=== PATIENT | male | born 1945 | race Caucasian/White ===

== ENCOUNTER 2018-10-10 09:41 | Outpatient (CLI) | payer MEDICARE ==
--- NOTE | 2018-10-11 08:30 | XRAY Report ---
Reason: HEMOPTYSIS Procedure Date: 10/10/2018 Accession Number: [id number] / [id number] Procedure: XRS - Chest 2 View X-Ray CPT Code: 73620 FULL RESULT: EXAM: CHEST RADIOGRAPHY TO VIEW HIS EXAM DATE: 10/10/2018. CLINICAL HISTORY: Hemoptysis. COMPARISON: PA and lateral chest on 08/30/2005. TECHNIQUE: PA and lateral views. FINDINGS: Lungs/Pleura: Normal vasculature. Minimal left lower lung scarring is unchanged. Vertical linear density in the medial right lower chest. The lungs are otherwise clear. No pleural fluid or pneumothorax. Mediastinum: Normal cardiac and mediastinal contours. Atherosclerosis of the aortic arch. Bones: Degenerative changes of the spine. IMPRESSION: Vertical linear focus of diskoid atelectasis or scar of the medial right lower lung, not present on 08/30/2005. Otherwise, no acute abnormality or significant change from the prior examination. [facility]
== END 2018-10-10 09:42 | disposition home or self-care (01) ==
LOC: DI.S 09:41
PROVIDERS: ATTEND Family Medicine
DX: R04.2 Hemoptysis (principal)
CPT/HCPCS: 71046

== ENCOUNTER 2019-05-17 13:54 | Outpatient (CLI) | payer MEDICARE ==
--- NOTE | 2019-05-17 15:12 | XRAY Report ---
Reason: LOW BACK PAIN,PAIN IN RT HIP Procedure Date: 05/17/2019 Accession Number: [id number] / [id number] Procedure: XR - Hip w/Pelvis 2-3V RT CPT Code: Final Report FULL RESULT: EXAM: RIGHT HIP RADIOGRAPHY EXAM DATE: 05/17/2019 02:24 PM. CLINICAL HISTORY: Low back pain, pain in right hip. COMPARISON: LUMBAR SPINE 2 VIEW 05/17/2019 2:08 PM. TECHNIQUE: 2 views. FINDINGS: Bones: Normal. No fractures or bone lesion. Joints: There is bilateral subarticular sclerosis affecting both acetabula and femoral heads consistent with osteoarthritis. The sacroiliac joints appear fused. There is transitional anatomy with fusion between the left transverse process of L5 and the left sacral ala. Soft Tissues: Normal. No soft tissue swelling. IMPRESSION: Mild bilateral hip osteoarthritis. Transitional anatomy at the lumbosacral junction. The sacroiliac joints are fused. [facility]
--- NOTE | 2019-05-17 15:13 | XRAY Report ---
Reason: LOW BACK PAIN,PAIN IN RT HI Procedure Date: 05/17/2019 Accession Number: [id number] / [id number] Procedure: XR - Lumbar Spine 2 View CPT Code: Final Report FULL RESULT: EXAM: LUMBOSACRAL SPINE RADIOGRAPHY EXAM DATE: 05/17/2019 02:24 PM. CLINICAL HISTORY: Low back pain and pain in the right hip. COMPARISONS: None. TECHNIQUE: 2 views. FINDINGS: Alignment: Normal. No spondylolisthesis or scoliosis. Bones: There is partial lumbarization of the S1 vertebra. No fractures or bone lesions. Disks: Endplate osteophytes are visible from T12-L1 to L5-S1. Facets: There is mild facet joint osteoarthritis from L3-L4 to L5-S1. Sacroiliac Joints: Unremarkable. Soft Tissues: There is mural calcification of the aorta and iliac arteries consistent with atherosclerosis. IMPRESSION: Moderate degenerative change of the lumbar spine. No visible fracture. [facility]
== END 2019-05-17 13:55 | disposition home or self-care (01) ==
LOC: DI 13:54
PROVIDERS: ATTEND Nurse Practitioner Family
DX: M47.816 Spondylosis without myelopathy or radiculopathy, lumbar region (principal); M47.817 Spondylosis without myelopathy or radiculopathy, lumbosacral region; M16.11 Unilateral primary osteoarthritis, right hip
CPT/HCPCS: 72100

== ENCOUNTER 2019-11-16 08:51 | Outpatient (CLI) | payer MEDICARE ==
[2019-11-16 16:02] LABS: ALBUMIN 3.8 g/dL (3.2-5.5); ALBUMIN/GLOBULIN RATIO 1.5 (1.0-2.2); ALKALINE PHOSPHATASE 52 IU/L (42-121); ALT ALANINE AMINOTRANSFERASE 18 IU/L (10-60); AST ASPARTATE AMINOTRANSFERASE 17 IU/L (10-42); BILIRUBIN,TOTAL 1.5 mg/dL (0.2-1.0); BUN - BLOOD UREA NITROGEN 15 mg/dL (6-20); CALCIUM 8.7 mg/dL (8.5-10.3); CARBON DIOXIDE - CO2 27 mmol/L (21-32); CHLORIDE 104 mmol/L (101-111); CHOL/HDL RATIO 3.3 (<5.0); CHOLESTEROL 170 mg/dL; CREATININE 0.8 mg/dL (0.6-1.2); GLUCOSE 105 mg/dL (70-100); HDL CHOLESTEROL 52 mg/dL; SODIUM 137 mmol/L (135-145); TOTAL PROTEIN 6.4 g/dL (6.7-8.2)
[2019-11-16 16:10] LABS: PSA TOTAL 1.335 ng/mL (0.000-2.000)
[2019-11-16 19:56] LABS: HEMOGLOBIN A1c% 5.6 % (4.27-6.07)
[2019-11-17 12:30] LABS: HEPATITIS C ANTIBODY NON-REACTIVE (NON-REACTIVE)
== END 2019-11-16 08:52 | disposition home or self-care (01) ==
LOC: LAB.S 08:51
PROVIDERS: ATTEND Family Medicine
DX: R73.9 Hyperglycemia, unspecified (principal); Z12.5 Encounter for screening for malignant neoplasm of prostate; Z11.59 Encounter for screening for other viral diseases
CPT/HCPCS: 36415; 80053; 80061; 83036; 83721; 84153; 86803

== ENCOUNTER 2020-09-29 14:34 | Outpatient (CLI) | payer MEDICARE ==
--- NOTE | 2020-09-29 16:14 | XRAY Report ---
PROCEDURE: Finger(s) LT INDICATIONS: CONTUSION OF LEFT RING FINGER TECHNIQUE: AP hand, 2 views of the left fourth finger(s) acquired. COMPARISON: None FINDINGS: Bones: There is a mildly displaced dorsal plate fracture involving the distal phalanx of the fourth d igit, with articular surface extension to the distal interphalangeal joint. No suspicious bony lesion s. Soft tissues: No suspicious soft tissue calcifications. IMPRESSION: Dorsal plate fracture of the fourth digit as above. Reviewed by: Lynne Amador MD on 09/29/2020 4:13 PM PDT Approved by: Lynne Amador MD on 09/29/2020 4:13 PM PDT Station ID: [id number]
== END 2020-09-29 23:59 | disposition home or self-care (01) ==
LOC: DI.S 14:34
PROVIDERS: ATTEND Emergency Medicine
DX: S62.635A Displaced fracture of distal phalanx of left ring finger, initial encounter for closed fracture (principal)

== ENCOUNTER 2021-02-28 08:00 | Outpatient (CLI) | payer MEDICARE | END 2021-02-28 23:59 | LOC: LAB 08:00 | PROVIDERS: ATTEND Emergency Medicine | DX: J34.89 Other specified disorders of nose and nasal sinuses (principal); R05.1 Acute cough; R11.2 Nausea with vomiting, unspecified; Z20.822 Contact with and (suspected) exposure to COVID-19 ==

== ENCOUNTER 2022-03-22 12:34 | Outpatient (CLI) | payer MEDICARE ==
--- NOTE | 2022-03-22 15:22 | Ultrasound Report ---
PROCEDURE: Abdomen Limited INDICATIONS: UMBILLICAL HERNIA TECHNIQUE: Real-time focused scanning was performed of the abdomen, with image documentation. COMPARISON: Not available. FINDINGS: Ultrasound was performed in the area of interest. There is a moderate sized, fat-containin g umbilical hernia. The hernia neck measures 2.1 cm. The hernia is partially reducible with manual co mpression. IMPRESSION: A moderate sized, partially reducible fat-containing umbilical hernia. Reviewed by: Stephy Caceres MD on 03/22/2022 3:21 PM PST Approved by: Stephy Caceres MD on 03/22/2022 3:21 PM PST Station ID: [id number]
== END 2022-03-22 12:35 | disposition home or self-care (01) ==
LOC: DI 12:34
PROVIDERS: ATTEND Nurse Practitioner Family
DX: K42.9 Umbilical hernia without obstruction or gangrene (principal)

== ENCOUNTER 2022-05-26 07:00 | Outpatient (CLI) | payer MEDICARE ==
--- NOTE | 2022-05-26 13:47 | XRAY Report ---
PROCEDURE: Chest 2 View X-Ray INDICATIONS: CHRONIC COUGH TECHNIQUE: 2 views of the chest were acquired. COMPARISON: None. FINDINGS: Surgical changes and devices: None. Lungs and pleura: No pleural effusions or pneumothorax. Lungs are clear. Mediastinum: Mediastinal contours appear normal. Heart size is normal. Bones and chest wall: No suspicious bony lesions. Overlying soft tissues appear unremarkable. IMPRESSION: No acute cardiopulmonary process. Reviewed by: Sedrick Bee on 05/26/2022 1:46 PM PDT Approved by: Sedrick Bee on 05/26/2022 1:46 PM PDT Station ID: [id number]
== END 2022-05-26 23:59 | disposition home or self-care (01) ==
LOC: DI.S 07:00
PROVIDERS: ATTEND Physician Assistant Medical
DX: R05.3 Chronic cough (principal)

== ENCOUNTER 2022-11-04 08:31 | Outpatient (CLI) | payer MEDICARE ==
--- NOTE | 2022-11-04 13:00 | XRAY Report ---
PROCEDURE: SI Joints INDICATIONS: BILATERAL SACROILIAC JOINT PAIN TECHNIQUE: 3 views of the sacroiliac joints were acquired. COMPARISON: Right hip radiographs 05/17/2019. FINDINGS: Bones: There is ankylosis of the sacroiliac joints bilaterally. Degenerative changes are seen in the included lumbar spine. Left iliolumbar ligament ossification is also noted. No suspicious bony lesion s. No acute fractures. Mild degenerative changes in the hips bilaterally. Soft tissues: Overlying bowel gas pattern is normal. No suspicious soft tissue densities. Aortic a therosclerotic calcifications are present. IMPRESSION: Ankylosis of the sacroiliac joints bilaterally. Reviewed by: Chad Carias MD on 11/04/2022 12:59 PM PDT Approved by: Chad Carias MD on 11/04/2022 12:59 PM PDT Station ID: [id number]
[2022-11-04 14:32] LABS: BASOPHILS # (AUTO) 0.1 10^3/uL (0.0-0.1); BASOPHILS % (AUTO) 1.3 %; EOSINOPHILS # (AUTO) 0.2 10^3/uL (0.0-0.7); EOSINOPHILS % (AUTO) 3.3 %; HCT - HEMATOCRIT 45.7 % (42.0-52.0); HGB - HEMOGLOBIN 15.3 g/dL (14.0-18.0); LYMPHOCYTES # (AUTO) 0.9 10^3/uL (1.5-3.5); LYMPHOCYTES % (AUTO) 20.1 %; MEAN CORPUSCULAR HEMOGLOBIN 32.8 pg (27.0-31.0); MEAN CORPUSCULAR HGB CONC 33.5 g/dL (32.0-36.0); MEAN CORPUSCULAR VOLUME 98.1 fL (80.0-94.0); MEAN PLATELET VOLUME 10.6 fL (7.4-11.4); MONOCYTES # (AUTO) 0.5 10^3/uL (0.0-1.0); NEUTROPHILS # (AUTO) 2.9 10^3/uL (1.5-6.6); NEUTROPHILS % (AUTO) 65.1 %; PLT - PLATELET COUNT 217 10^3/uL (130-450); RED BLOOD COUNT 4.66 10^6/uL (4.70-6.10); RED CELL DISTRIBUTION WIDTH 13.1 % (12.0-15.0); WHITE BLOOD COUNT 4.5 x10^3/uL (4.8-10.8)
[2022-11-04 14:54] LABS: ALBUMIN 3.9 g/dL (3.2-5.5); ALBUMIN/GLOBULIN RATIO 1.8 (1.0-2.2); ALKALINE PHOSPHATASE 50 IU/L (42-121); ALT ALANINE AMINOTRANSFERASE 14 IU/L (10-60); AST ASPARTATE AMINOTRANSFERASE 18 IU/L (10-42); BILIRUBIN,TOTAL 1.1 mg/dL (0.2-1.0); BUN - BLOOD UREA NITROGEN 16 mg/dL (6-20); CALCIUM 8.9 mg/dL (8.5-10.3); CARBON DIOXIDE - CO2 30 mmol/L (21-32); CHLORIDE 106 mmol/L (101-111); CHOL/HDL RATIO 3.3 (<5.0); CHOLESTEROL 176 mg/dL; CREATININE 0.8 mg/dL (0.6-1.3); GFR - MDRD 93 (>89); GLUCOSE 115 mg/dL (74-104); HDL CHOLESTEROL 54 mg/dL; LDL CHOLESTEROL,CALCULATED 114 mg/dL; LDL/HDL RATIO 2.1 (<3.6); POTASSIUM 4.7 mmol/L (3.5-4.5); SODIUM 138 mmol/L (135-145); TOTAL PROTEIN 6.1 g/dL (6.4-8.9); TRIGLYCERIDES 41 mg/dL (48-352); VLDL CHOLESTEROL 8 mg/dL
[2022-11-04 15:09] LABS: THYROID STIMULATING HORMONE 1.21 uIU/mL (0.34-5.60)
[2022-11-04 20:38] LABS: ESTIMATED AVERAGE GLUCOSE 114 mg/dL (70-100); HEMOGLOBIN A1c% 5.6 % (4.27-6.07)
== END 2022-11-04 08:32 | disposition home or self-care (01) ==
LOC: DI.S 08:31
PROVIDERS: ATTEND Internal Medicine
DX: M43.28 Fusion of spine, sacral and sacrococcygeal region (principal); R53.83 Other fatigue; R42 Dizziness and giddiness
CPT/HCPCS: 36415; 80053; 80061; 83036; 83721; 84443; 85025

== ENCOUNTER 2022-11-30 07:59 | Outpatient (CLI) | payer MEDICARE ==
[2022-11-30 15:49] LABS: RHEUMATOID FACTOR NEGATIVE (Negative)
== END 2022-11-30 08:00 | disposition home or self-care (01) ==
LOC: LAB.S 07:59
PROVIDERS: ATTEND Internal Medicine
DX: M53.3 Sacrococcygeal disorders, not elsewhere classified (principal); R53.83 Other fatigue
CPT/HCPCS: 36415; 81374; 85651; 86140; 86430

== ENCOUNTER 2023-01-22 12:25 | Outpatient (CLI) | payer MEDICARE ==
--- NOTE | 2023-01-23 18:43 | XRAY Report ---
PROCEDURE: Chest 2 View X-Ray INDICATIONS: ACUTE COUGH/COVID+ TECHNIQUE: 2 views of the chest were acquired. COMPARISON: None. FINDINGS: Surgical changes and devices: None. Lungs and pleura: No pleural effusions or pneumothorax. Lungs are clear. Mediastinum: Mediastinal contours appear normal. Heart size is normal. Bones and chest wall: No suspicious bony lesions. Overlying soft tissues appear unremarkable. IMPRESSION: No acute cardiopulmonary process. Reviewed by: Michelle Cadet MD on 01/23/2023 6:42 PM [facility] Approved by: Michelle Cadet MD on 01/23/2023 6:42 PM [facility] Station ID: [id number]
== END 2023-01-22 23:59 | disposition home or self-care (01) ==
LOC: DI.S 12:25
PROVIDERS: ATTEND Registered Nurse
DX: U07.1 COVID-19 (principal); R05.1 Acute cough

== ENCOUNTER 2023-01-22 15:00 | Outpatient (CLI) | payer MEDICARE ==
[2023-01-22 15:17] LABS: BASOPHILS % (AUTO) 0.1 %; EOSINOPHILS % (AUTO) 0.1 %; HCT - HEMATOCRIT 52.1 % (42.0-52.0); HGB - HEMOGLOBIN 17.4 g/dL (14.0-18.0); LYMPHOCYTES % (AUTO) 9.3 %; MEAN CORPUSCULAR HEMOGLOBIN 31.9 pg (27.0-31.0); MEAN CORPUSCULAR HGB CONC 33.4 g/dL (32.0-36.0); MEAN CORPUSCULAR VOLUME 95.4 fL (80.0-94.0); MEAN PLATELET VOLUME 10.7 fL (7.4-11.4); MONOCYTES # (AUTO) 0.9 10^3/uL (0.0-1.0); MONOCYTES % (AUTO) 8.4 %; NEUTROPHILS # (AUTO) 8.5 10^3/uL (1.5-6.6); NEUTROPHILS % (AUTO) 81.8 %; PLT - PLATELET COUNT 207 10^3/uL (130-450); RED BLOOD COUNT 5.46 10^6/uL (4.70-6.10); RED CELL DISTRIBUTION WIDTH 12.4 % (12.0-15.0); WHITE BLOOD COUNT 10.4 x10^3/uL (4.8-10.8)
[2023-01-22 15:42] LABS: ALBUMIN 4.1 g/dL (3.2-5.5); ALBUMIN/GLOBULIN RATIO 1.4 (1.0-2.2); BILIRUBIN,TOTAL 1.2 mg/dL (0.2-1.0); CALCIUM 9.3 mg/dL (8.5-10.3); CREATININE 0.8 mg/dL (0.6-1.3); POTASSIUM 4.9 mmol/L (3.5-4.5)
== END 2023-01-22 15:01 | disposition home or self-care (01) ==
LOC: LAB 15:00
PROVIDERS: ATTEND Registered Nurse
DX: U07.1 COVID-19 (principal)
CPT/HCPCS: 36415; 80053; 85025

== ENCOUNTER 2023-01-24 11:21 | Outpatient (CLI) | payer MEDICARE ==
[2023-01-24 14:35] LABS: BASOPHILS % (AUTO) 0.4 %; EOSINOPHILS # (AUTO) 0.1 10^3/uL (0.0-0.7); EOSINOPHILS % (AUTO) 0.7 %; HCT - HEMATOCRIT 49.7 % (42.0-52.0); HGB - HEMOGLOBIN 16.4 g/dL (14.0-18.0); LYMPHOCYTES % (AUTO) 14.4 %; MEAN CORPUSCULAR HEMOGLOBIN 31.9 pg (27.0-31.0); MEAN CORPUSCULAR VOLUME 96.7 fL (80.0-94.0); MEAN PLATELET VOLUME 11.2 fL (7.4-11.4); MONOCYTES # (AUTO) 0.7 10^3/uL (0.0-1.0); MONOCYTES % (AUTO) 10.4 %; NEUTROPHILS % (AUTO) 73.8 %; PLT - PLATELET COUNT 251 10^3/uL (130-450); RED BLOOD COUNT 5.14 10^6/uL (4.70-6.10); RED CELL DISTRIBUTION WIDTH 12.1 % (12.0-15.0); WHITE BLOOD COUNT 6.8 x10^3/uL (4.8-10.8)
[2023-01-24 15:25] LABS: ALBUMIN 3.9 g/dL (3.2-5.5); ALBUMIN/GLOBULIN RATIO 1.4 (1.0-2.2); BILIRUBIN,TOTAL 1.6 mg/dL (0.2-1.0); CALCIUM 9.3 mg/dL (8.5-10.3); POTASSIUM 4.4 mmol/L (3.5-4.5); TOTAL PROTEIN 6.7 g/dL (6.4-8.9)
== END 2023-01-24 11:22 | disposition home or self-care (01) ==
LOC: LAB.S 11:21
PROVIDERS: ATTEND Registered Nurse
DX: U07.1 COVID-19 (principal)
CPT/HCPCS: 36415; 80053; 85025

== ENCOUNTER 2023-02-10 07:52 | Outpatient (CLI) | payer MEDICARE ==
[2023-02-10 14:43] LABS: BASOPHILS # (AUTO) 0.1 10^3/uL (0.0-0.1); EOSINOPHILS # (AUTO) 0.2 10^3/uL (0.0-0.7); EOSINOPHILS % (AUTO) 3.2 %; HCT - HEMATOCRIT 46.5 % (42.0-52.0); HGB - HEMOGLOBIN 15.2 g/dL (14.0-18.0); LYMPHOCYTES % (AUTO) 19.8 %; MEAN CORPUSCULAR HEMOGLOBIN 32.1 pg (27.0-31.0); MEAN CORPUSCULAR HGB CONC 32.7 g/dL (32.0-36.0); MEAN CORPUSCULAR VOLUME 98.3 fL (80.0-94.0); MEAN PLATELET VOLUME 10.5 fL (7.4-11.4); MONOCYTES # (AUTO) 0.6 10^3/uL (0.0-1.0); MONOCYTES % (AUTO) 11.3 %; NEUTROPHILS # (AUTO) 3.2 10^3/uL (1.5-6.6); NEUTROPHILS % (AUTO) 64.3 %; PLT - PLATELET COUNT 229 10^3/uL (130-450); RED BLOOD COUNT 4.73 10^6/uL (4.70-6.10)
[2023-02-10 15:31] LABS: ALBUMIN 3.7 g/dL (3.2-5.5); ALBUMIN/GLOBULIN RATIO 1.4 (1.0-2.2); BILIRUBIN,DIRECT 0.11 mg/dL (0.03-0.18); CALCIUM 8.7 mg/dL (8.5-10.3); CREATININE 0.8 mg/dL (0.6-1.3); POTASSIUM 4.5 mmol/L (3.5-4.5); TOTAL PROTEIN 6.4 g/dL (6.4-8.9)
== END 2023-02-10 07:53 | disposition home or self-care (01) ==
LOC: LAB.S 07:52
PROVIDERS: ATTEND Internal Medicine
DX: U07.1 COVID-19 (principal); R63.0 Anorexia; R11.0 Nausea; E80.6 Other disorders of bilirubin metabolism
CPT/HCPCS: 36415; 80053; 82248; 85025

== ENCOUNTER 2023-02-25 08:42 | Outpatient (CLI) | payer MEDICARE ==
--- NOTE | 2023-02-25 14:19 | MRI Report ---
PROCEDURE: PELVIS WO INDICATIONS: SACROILIITIS TECHNIQUE: Noncontrast coronal T1 spin echo, STIR, and T2 haste with and without fat saturation; axial T1 spin e cho, STIR, and T2 haste; sagittal T1 spin echo and T2 haste through the bony pelvis. Oblique coronal T1 spin echo and STIR through the sacrum. COMPARISON: Sacroiliac joint radiographs 11/04/2022 FINDINGS: Image quality: Excellent. Bones: There is severe joint space narrowing and partial ankylosis of the sacroiliac joints bilateral ly. No focal osseous edema is seen just distal to sacroiliitis. No suspicious marrow space occupying lesions. There are changes are seen in the included lumbar spine with degenerative endplate edema herman rounding the L4-5 disc space. There is partial sacralization of L5. Soft tissues: No presacral mass. Rectum appears normal in caliber and wall thickness. No pathologic f ree pelvic fluid. Multiple diverticula are seen in the included colon. Prostate is enlarged. The musc ulature surrounding the pelvis is normal in bulk. There is a fat-containing periumbilical hernia. 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 No signs of active sacroiliitis. 2.Degenerative changes in the included lumbar spine. 3.Incidental note is made of colonic diverticulosis, prostatomegaly, and a fat-containing periumbilic al hernia. Reviewed by: Chad Carias MD on 02/25/2023 2:17 PM PST Approved by: Chad Carias MD on 02/25/2023 2:17 PM PST Station ID: [id number]
== END 2023-02-25 08:43 | disposition home or self-care (01) ==
LOC: DI 08:42
PROVIDERS: ATTEND Internal Medicine
DX: M43.28 Fusion of spine, sacral and sacrococcygeal region (principal); M47.816 Spondylosis without myelopathy or radiculopathy, lumbar region

== ENCOUNTER 2023-05-19 09:17 | Outpatient (CLI) | payer MEDICARE ==
[2023-05-19 14:43] LABS: BASOPHILS # (AUTO) 0.1 10^3/uL (0.0-0.1); EOSINOPHILS # (AUTO) 0.1 10^3/uL (0.0-0.7); EOSINOPHILS % (AUTO) 2.3 %; HCT - HEMATOCRIT 49.1 % (42.0-52.0); HGB - HEMOGLOBIN 16.1 g/dL (14.0-18.0); LYMPHOCYTES # (AUTO) 1.2 10^3/uL (1.5-3.5); LYMPHOCYTES % (AUTO) 22.9 %; MEAN CORPUSCULAR HEMOGLOBIN 32.2 pg (27.0-31.0); MEAN CORPUSCULAR HGB CONC 32.8 g/dL (32.0-36.0); MEAN CORPUSCULAR VOLUME 98.2 fL (80.0-94.0); MEAN PLATELET VOLUME 11.2 fL (7.4-11.4); MONOCYTES # (AUTO) 0.5 10^3/uL (0.0-1.0); MONOCYTES % (AUTO) 10.1 %; NEUTROPHILS # (AUTO) 3.3 10^3/uL (1.5-6.6); NEUTROPHILS % (AUTO) 63.5 %; PLT - PLATELET COUNT 192 10^3/uL (130-450); WHITE BLOOD COUNT 5.2 x10^3/uL (4.8-10.8)
[2023-05-19 15:47] LABS: ALBUMIN/GLOBULIN RATIO 1.5 (1.0-2.2); ALKALINE PHOSPHATASE 49 IU/L (42-121); ALT ALANINE AMINOTRANSFERASE 14 IU/L (10-60); AST ASPARTATE AMINOTRANSFERASE 19 IU/L (10-42); BILIRUBIN,TOTAL 1.2 mg/dL (0.2-1.0); BUN - BLOOD UREA NITROGEN 15 mg/dL (6-20); CALCIUM 9.3 mg/dL (8.5-10.3); CARBON DIOXIDE - CO2 29 mmol/L (21-32); CHLORIDE 106 mmol/L (101-111); CHOLESTEROL 176 mg/dL; CREATININE 0.8 mg/dL (0.6-1.3); GFR - MDRD 93 (>89); GLUCOSE 111 mg/dL (74-104); HDL CHOLESTEROL 58 mg/dL; LDL CHOLESTEROL,CALCULATED 108 mg/dL; LDL/HDL RATIO 1.9 (<3.6); POTASSIUM 4.5 mmol/L (3.5-4.5); SODIUM 138 mmol/L (135-145); TOTAL PROTEIN 6.6 g/dL (6.4-8.9); TRIGLYCERIDES 52 mg/dL (48-352); VLDL CHOLESTEROL 10 mg/dL
== END 2023-05-19 09:18 | disposition home or self-care (01) ==
LOC: LAB.S 09:17
PROVIDERS: ATTEND Internal Medicine
DX: E80.6 Other disorders of bilirubin metabolism (principal); Z13.220 Encounter for screening for lipoid disorders; N40.1 Benign prostatic hyperplasia with lower urinary tract symptoms; R53.83 Other fatigue
CPT/HCPCS: 36415; 80053; 80061; 83721; 84153; 85025

== ENCOUNTER 2023-06-10 10:56 | Outpatient (CLI) | payer MEDICARE ==
--- NOTE | 2023-06-10 11:34 | XRAY Report ---
PROCEDURE: Thoracic Spine 2V INDICATIONS: LUMBAR/CERVICAL/THORACIC DEGENERATION TECHNIQUE: views of the thoracic spine were acquired. COMPARISON: X-ray cervical and lumbar spine 06/10/2023, x-ray lumbar spine 05/17/2019 FINDINGS: Bones: No fractures or dislocations. No suspicious bony lesions. 12 pairs of ribs are noted, and a ppear intact where visualized. Multilevel moderate degenerative disc space narrowing. Multilevel ant erior osteophytes are present. Soft tissues: No paravertebral stripe thickening. IMPRESSION: Multilevel degenerative disc space narrowing as well as anterior osteophytes. Reviewed by: Yareli Gonzales MD on 06/10/2023 11:32 AM PDT Approved by: Yareli Gonzales MD on 06/10/2023 11:32 AM PDT Station ID: [id number]
--- NOTE | 2023-06-10 11:47 | XRAY Report ---
PROCEDURE: Cervical Spine 2-3V INDICATIONS: LUMBAR/CERVICAL/THORACIC DEGENERATION TECHNIQUE: 3 view(s) of the cervical spine were acquired. COMPARISON: X-ray thoracic and lumbar spine 06/10/2023 FINDINGS: Bones: No fractures or dislocations to the C7-T1 level. The lateral masses of C1 appear intact on t he odontoid view. No suspicious bony lesions. There is overall cervical straightening. Multilevel d egenerative disc space narrowing overall moderate to severe and most prominent at C4-5 and C5-6 as we ll as C6-7. Multilevel anterior osteophytes are present as well as uncovertebral arthropathy. Soft tissues: No prevertebral soft tissue swelling. IMPRESSION: Prominent multilevel degenerative changes most severe from C4-5 through C6-7. Reviewed by: Yareli Gonzales MD on 06/10/2023 11:46 AM PDT Approved by: Yareli Gonzales MD on 06/10/2023 11:46 AM PDT Station ID: [id number]
--- NOTE | 2023-06-10 11:51 | XRAY Report ---
PROCEDURE: Lumbar Spine 2-3V INDICATIONS: LUMBAR/CERVICAL/THORACIC DEGENERATION TECHNIQUE: 3 views of the lumbar spine were acquired. COMPARISON: X-ray thoracic spine 06/10/2023, x-ray lumbar spine 05/17/2019 FINDINGS: Bones: 5 [id number] vertebrae are present. There is trace retrolisthesis of L3 on L4. Multilev el moderate to severe disc space narrowing is present most prominent at L2-3, L5-S1. Significant mult ilevel bridging enterostomies are present most severe at L1-2, L2-3 due to a lesser degree L3-4. Inessa re foraminal narrowing is present at L5-S1 as well as moderate to severe at L4-5. Overall appearance of degenerative changes are progressive compared to 2019. No vertebral body compression fractures. N o suspicious bony lesions. Soft tissues: Overlying bowel gas pattern is normal. No suspicious soft tissue calcifications. IMPRESSION: Significant multilevel degenerative changes overall progressive compared to 2019. Reviewed by: Yareli Gonzales MD on 06/10/2023 11:50 AM PDT Approved by: Yareli Gonzales MD on 06/10/2023 11:50 AM PDT Station ID: [id number]
== END 2023-06-10 10:57 | disposition home or self-care (01) ==
LOC: DI 10:56
PROVIDERS: ATTEND Specialist
DX: M47.26 Other spondylosis with radiculopathy, lumbar region (principal); M51.35 Other intervertebral disc degeneration, thoracolumbar region; M46.1 Sacroiliitis, not elsewhere classified; M47.812 Spondylosis without myelopathy or radiculopathy, cervical region; M47.814 Spondylosis without myelopathy or radiculopathy, thoracic region
CPT/HCPCS: 36415; 81374; 85651; 86140